=== PATIENT | male | born 1940 | race Caucasian/White ===

== ENCOUNTER → 2019-03-03 | Outpatient (CLI) | payer MEDICARE, OTHER | END | disposition home or self-care (01) | LOC: PLD 08:15 → LAB SHORT 08:15 | DX: D22.72 Melanocytic nevi of left lower limb, including hip (principal) | CPT/HCPCS: 88305; 88312 ==

== ENCOUNTER → 2020-03-22 | Outpatient (CLI) | payer MEDICARE | END | disposition home or self-care (01) | LOC: PLD 11:38 → LAB SHORT 11:38 | DX: D04.39 Carcinoma in situ of skin of other parts of face (principal); L81.4 Other melanin hyperpigmentation | CPT/HCPCS: 88305 ==

== ENCOUNTER 2020-06-13 06:50 | Inpatient (IN) | payer MEDICARE ==
[~2020-06-13] VITALS: Ht 175.3 cm; Wt 91.2 kg
[2020-06-13] MEDS ORDERED: XARELTO20 MG PO (07:07)
[2020-06-13] MEDS ORDERED: ATOR20 PO (07:07)
[2020-06-13] MEDS ORDERED: METF500 PO (07:07)
[2020-06-13] MEDS ORDERED: METO100 PO (07:08)
[2020-06-13] MEDS ORDERED: DIGOX250 MCG PO (07:08)
[2020-06-13] MEDS ORDERED: LISI20 PO (07:10)
[2020-06-13] MEDS ORDERED: ALLO300 PO (07:10)
[2020-06-13] MEDS ORDERED: ALDACTONE25 MG PO (07:11)
[2020-06-13 07:26] LABS: BASOPHILS ABSOLUTE AUTO 0.04 K/mm3 (0.00-0.23); BASOPHILS PERCENT AUTO 0 % (0-2); EOSINOPHILS ABSOLUTE AUTO 0.06 K/mm3 (0.00-0.68); EOSINOPHILS PERCENT AUTO 0 % (0-6); Hematocrit 37.5 % (37.0-53.0); Hemoglobin 12.7 g/dL (13.5-17.5); IMMATURE GRAN PERCENT AUTO 1 % (0-1); LYMPHOCYTES ABSOLUTE AUTO 0.47 K/mm3 (0.84-5.20); LYMPHOCYTES PERCENT AUTO 3 % (21-46); MONOCYTES ABSOLUTE AUTO 0.47 K/mm3 (0.16-1.47); MONOCYTES PERCENT AUTO 3 % (4-13); Mean Corpuscular HGB 30.5 pg (26.0-34.0); Mean Corpuscular HGB Conc 33.9 g/dL (31.5-36.5); Mean Corpuscular Volume 90 fL (80-100); Mean Platelet Volume 10.3 fL (9.1-12.4); NEUTROPHILS ABSOLUTE AUTO 14.03 K/mm3 (1.96-9.15); NEUTROPHILS PERCENT AUTO 92 % (41-73); Platelet Count 184 K/mm3 (150-400); RDW Standard Deviation 45.8 fL (35.1-46.3); Red Blood Cell Count 4.17 M/mm3 (4.30-5.90); White Blood Cell Count 15.17 K/mm3 (4.00-11.30)
[2020-06-13 07:50] LABS: Albumin, Blood 3.5 g/dL (3.4-5.0); Albumin/Globulin Ratio 1.1 (0.8-1.8); Bilirubin, Total 0.8 mg/dL (0.1-1.0); Bun/Creatinine Ratio 20.3 (12.0-20.0); Calcium, Blood 10.7 mg/dL (8.5-10.1); Creatinine, Blood 1.38 mg/dL (0.60-1.20); Globulin, Blood 3.1 g/dL (2.2-4.0); Potassium, Blood 4.3 mmol/L (3.5-5.5); Total Protein, Blood 6.6 g/dL (6.4-8.2)
[2020-06-13 07:53] LABS: Source, Urine Clean Catch
[2020-06-13 08:03] LABS: Bilirubin, Urine Neg (Neg); Blood, Urine 5+ (Neg); Glucose Qualitative, Urine Neg (Neg); Ketones, Urine 1+ (Neg); Leukocyte Esterase, Urine 2+ (Neg); Nitrite, Urine Neg (Neg); Protein, Urine 3+ (Neg); Urobilinogen, Urine NORM (Normal)
[2020-06-13 08:13] LABS: Appearance, Urine Bloody (Clear); Color, Urine Red (P-Yellow)
[2020-06-13 08:17] LABS: Bacteria Few /hpf; Red Blood Cells, Urine TNTC /hpf (0-2); Squamous Epithelial Cells Few /hpf (Few)
[2020-06-13 09:05] LABS: Digoxin (Lanoxin) 0.78 ug/mL (0.80-2.00)
--- NOTE | 2020-06-13 17:02 | NUR ---
PT AOX4 AND COOPERATIVE OF CARE. PT DENIES ANY PAIN AT THIS TIME. PT'S URINE IS BEING STRAINED, BUT NO STONES HAVE BEEN SEEN. PT IS A STANBY ASSIST TO RESTROOM DUE TO NEEDING HELP WITH IV POLE. PT PLEASANT AND COOPERATIVE. CALL LIGHT IS WITHIN REACH. WILL CONTINUE TO MONITOR.
[2020-06-13 17:10] LABS: Hematocrit 34.2 % (37.0-53.0); Hemoglobin 11.3 g/dL (13.5-17.5)
--- NOTE | 2020-06-13 17:48 | NUR ---
PT HAS ONLY PASSED A COUPLE BLOOD CLOTS NO STONES FOUND AT THIS TIME. WILL CONTINUE TO MONITOR.
--- NOTE | 2020-06-14 04:53 | NUR ---
SHIFT SUMMARY A/O, ABLE TO MAKE NEEDS KNOWN. COOPERATIVE WITH CARE. CALLS AND ANSWERS QUESTIONS APPROPRIATELY. NO C/O PAIN/DISCOMFORT. 1P ASSIST TO BATHROOM; STRAINING ALL URINE. TELE RUNNING SR IN 80s PER PCU INSPECTOR AND HAND PACKAGER. CONTINUOUS FLUIDS RUNNING WITHOUT COMPLICATION. POSITIVE BLOOD CX; NEW ORDERS PER ON-CALL PROVIDER FOR VANCO, RECIEVED FIRST DOSE THIS SHIFT. HAS REMAINED FEBRILE T/O NIGHT. BED REMAINS IN LOWEST POSITION; ALARM ON. CALL LIGHT AND BELONGINGS WITHIN REACH. REPORT TO ONCOMING RN.
[2020-06-14 05:14] LABS: BASOPHILS ABSOLUTE AUTO 0.02 K/mm3 (0.00-0.23); BASOPHILS PERCENT AUTO 0 % (0-2); EOSINOPHILS PERCENT AUTO 0 % (0-6); Hematocrit 30.8 % (37.0-53.0); Hemoglobin 10.2 g/dL (13.5-17.5); IMMATURE GRAN ABSOLUTE AUTO 0.03 K/mm3 (0.00-0.10); IMMATURE GRAN PERCENT AUTO 0 % (0-1); LYMPHOCYTES ABSOLUTE AUTO 0.57 K/mm3 (0.84-5.20); LYMPHOCYTES PERCENT AUTO 7 % (21-46); MONOCYTES ABSOLUTE AUTO 0.41 K/mm3 (0.16-1.47); MONOCYTES PERCENT AUTO 5 % (4-13); Mean Corpuscular HGB 29.9 pg (26.0-34.0); Mean Corpuscular HGB Conc 33.1 g/dL (31.5-36.5); Mean Corpuscular Volume 90 fL (80-100); Mean Platelet Volume 10.7 fL (9.1-12.4); NEUTROPHILS ABSOLUTE AUTO 7.35 K/mm3 (1.96-9.15); NEUTROPHILS PERCENT AUTO 88 % (41-73); Platelet Count 130 K/mm3 (150-400); RDW Coefficient Variation 14.6 % (11.7-14.2); RDW Standard Deviation 46.9 fL (35.1-46.3); Red Blood Cell Count 3.41 M/mm3 (4.30-5.90); White Blood Cell Count 8.38 K/mm3 (4.00-11.30)
[2020-06-14 05:35] LABS: Albumin, Blood 2.6 g/dL (3.4-5.0); Bilirubin, Total 0.5 mg/dL (0.1-1.0); Bun/Creatinine Ratio 19.5 (12.0-20.0); Calcium, Blood 9.1 mg/dL (8.5-10.1); Creatinine, Blood 1.28 mg/dL (0.60-1.20); Globulin, Blood 2.6 g/dL (2.2-4.0); Potassium, Blood 4.1 mmol/L (3.5-5.5); Total Protein, Blood 5.2 g/dL (6.4-8.2)
--- NOTE | 2020-06-14 17:34 | NUR ---
PT AOX4 AND COOPERATIVE OF CARE. NO STONES HAVE BEEN VOIDED AT THIS TIME. PT HAS BEEN AFEBRILE ALL DAY AND THEN LAST VITALS PT WAS 99.0. PT IS ABLE TO BE A STANBY ASSIT TO RESTROOM AND PT CALLS APPROPRIATELY. PT HAS CALL LIGHT WITHIN REACH WILL CONTINUE TO MONITOR.
--- NOTE | 2020-06-14 18:25 | NUR ---
ADMIT: 06/13/20 DISCHARGE: 06/15/20 DX: sepsis CC: [email or web address] HOOD CALL: met with Barb and Marko in patient room, call either one for hood RESIDENCE: home CAREGIVER: self Amadeo Barb [phone] DX:afib, dm 2, htn, familia- see list DME: cpap- pcp recommended he get a new one. CCM: no record HOME HEALTH: 1.19 not homebound per patient 06/13/19 No PT OT ordered. SUMMARY: Admit 06/13/20 06/14/20 Met with Barb and Marko in patient room for discharge planning. Marko is still employed, drives, no assitive needs. Discussed hood Call from [facility] on . Follow up appointment scheduled with Dr Phan Saturday 8:40 am Did not identify any care needs at this time Dr Ojeda ETA discharge Thursday 06/15. Left transition of care letter for [facility] with patient. no discharge follow up required at this time. cp 1: Sepsis
--- NOTE | 2020-06-14 19:05 | NUR ---
ASSUMED CARE RECEIVED REPORT FROM TRUNG ZIMMERMAN. PT ASLEEP, NO ACUTE NEEDS OR DISTRESS NOTED AT THIS TIME. RESPS E/U. CALL LIGHT, POSSESSIONS IN REACH, BED IN LOW POSITION WITH ALARM ACTIVATED. CONTINUE TO MONITOR.
--- NOTE | 2020-06-15 04:19 | NUR ---
SHIFT SUMMARY PT ASLEEP, NO S/S DISTRESS. NO ACUTE CHANGES IN CONDITION T/O NIGHT, VS REVIEWED, WNL. DENIES PAIN OR NEEDS AT THIS TIME. CALL LIGHT, POSSESSIONS IN REACH, BED IN LOW POSITION WITH ALARMS ON. WILL CONTINUE TO MONITOR UNTIL REPORT GIVEN TO DAY RN.
--- NOTE | 2020-06-15 07:45 | NUR ---
PT PLEASANT COOP A/O DENIES PAIN. 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 H/R REG, NO MURMER NOTED. NO TELE. LUNGS CLEAR, RESP EASY, UNLABORED. ON R/A. BT X4, STATES LAST BM 2 DAYS. VOIDS INDEPENDANTLY TO BATHROOM. BED IN LOW POSITIOIN, CALL LITE IN REACH, CALLS APPROP
[2020-06-15] MEDS ORDERED: TAMS.4ER PO (15:55)
[2020-06-15] MEDS ORDERED: AMOCLA875 PO (15:55)
--- NOTE | 2020-06-15 16:38 | NUR ---
SUMMARY: Admit 06/13/20 06/16/[address] home with to drive, p/u new meds. appt scheduled 06/17/20 8:40 Dr Phan. No home health needed.
--- NOTE | 2020-06-15 16:43 | NUR ---
DISCHARGE REVIEWED WITH PT AND SPOUSE. VERBALIZED UNDERSTANDING MEDS AND INST. NO TELE. IV PULLED INTACT. PT VERBALIZED NOT HAD BM IN 2-[address] MENESES[address] IS OKAY. OKAYED TO HAVE PT OBTAIN OTC TREATMENT IE MIRALAX OR PRUNE JUICE. EXPLAINED TO PT AND SPOUSE. THEY VERBALIZED UNDERSTANDING. PT WHEELED TO DOOR AT 1646 BY HENRY
== END 2020-06-15 16:42 | disposition home or self-care (01) | DRG 872 ==
LOC: ER 06:50 → MEDS 10:55
PROVIDERS: Emergency Medicine; ADMIT Family Medicine
DX: A41.81 Sepsis due to Enterococcus (principal); N39.0 Urinary tract infection, site not specified; E87.2 Acidosis; I48.20 Chronic atrial fibrillation, unspecified; E78.5 Hyperlipidemia, unspecified; E79.0 Hyperuricemia without signs of inflammatory arthritis and tophaceous disease; G47.30 Sleep apnea, unspecified; I12.9 Hypertensive chronic kidney disease with stage 1 through stage 4 chronic kidney disease, or unspecified chronic kidney disease; E11.22 Type 2 diabetes mellitus with diabetic chronic kidney disease; N18.30 Chronic kidney disease, stage 3 unspecified; N20.0 Calculus of kidney; Z87.891 Personal history of nicotine dependence; Z79.01 Long term (current) use of anticoagulants; N21.0 Calculus in bladder; Z20.822 Contact with and (suspected) exposure to COVID-19
CPT/HCPCS: 36415; 74176; 80053; 80162; 81001; 82947; 83605; 85014; 85018; 85025; 87040; 87077; 87086; 87186; 93005; 93010; 96374; 99285-25; A9270; J0295; J0696; J3370; J7030; J7050

== ENCOUNTER 2022-04-13 08:20 | Emergency (ER) | payer MEDICARE ==
[~2022-04-13] VITALS: Ht 175.3 cm; Wt 86.2 kg
[~2022-04-13 08:20] MED LIST: ALDACTONE25 MG PO; ALLO300 PO; AMOCLA875 PO; ATOR20 PO; DIGOX250 MCG PO; LISI20 PO; METF500 PO; METO100 PO; TAMS.4ER PO; XARELTO20 MG PO
[2022-04-13 10:08] LABS: BASOPHILS ABSOLUTE AUTO 0.05 K/mm3 (0.00-0.23); BASOPHILS PERCENT AUTO 1 % (0-2); EOSINOPHILS ABSOLUTE AUTO 0.16 K/mm3 (0.00-0.68); EOSINOPHILS PERCENT AUTO 2 % (0-6); Hematocrit 33.2 % (37.0-53.0); IMMATURE GRAN ABSOLUTE AUTO 0.04 K/mm3 (0.00-0.10); IMMATURE GRAN PERCENT AUTO 1 % (0-1); LYMPHOCYTES ABSOLUTE AUTO 1.06 K/mm3 (0.84-5.20); LYMPHOCYTES PERCENT AUTO 13 % (21-46); MONOCYTES ABSOLUTE AUTO 0.69 K/mm3 (0.16-1.47); MONOCYTES PERCENT AUTO 9 % (4-13); Mean Corpuscular HGB 29.9 pg (26.0-34.0); Mean Corpuscular HGB Conc 33.1 g/dL (31.5-36.5); Mean Corpuscular Volume 90 fL (80-100); Mean Platelet Volume 9.8 fL (9.1-12.4); NEUTROPHILS ABSOLUTE AUTO 6.13 K/mm3 (1.96-9.15); NEUTROPHILS PERCENT AUTO 75 % (41-73); Platelet Count 226 K/mm3 (150-400); RDW Coefficient Variation 14.8 % (11.7-14.2); RDW Standard Deviation 49.2 fL (35.1-46.3); Red Blood Cell Count 3.68 M/mm3 (4.30-5.90); White Blood Cell Count 8.13 K/mm3 (4.00-11.30)
[2022-04-13 10:34] LABS: Albumin, Blood 3.2 g/dL (3.4-5.0); Albumin/Globulin Ratio 1.1 (0.8-1.8); Bilirubin, Total 0.7 mg/dL (0.1-1.0); Bun/Creatinine Ratio 11.8 (12.0-20.0); Creatinine, Blood 1.19 mg/dL (0.60-1.20); Globulin, Blood 2.9 g/dL (2.2-4.0); Potassium, Blood 4.2 mmol/L (3.5-5.5); Total Protein, Blood 6.1 g/dL (6.4-8.2)
== END 2022-04-13 11:56 | disposition home or self-care (01) ==
LOC: ER 08:20
PROVIDERS: Student in an Organized Health Care Education/Training Program
DX: R10.13 Epigastric pain (principal); R14.2 Eructation; R04.2 Hemoptysis; I10 Essential (primary) hypertension; E11.9 Type 2 diabetes mellitus without complications; E78.5 Hyperlipidemia, unspecified; Z87.891 Personal history of nicotine dependence; Z79.84 Long term (current) use of oral hypoglycemic drugs; Z79.899 Other long term (current) drug therapy
CPT/HCPCS: 80053; 85025; A9270

== ENCOUNTER 2022-05-09 09:30 | Observation (INO) | payer MEDICARE ==
[~2022-05-09] VITALS: Ht 172.7 cm; Wt 70.3 kg
[2022-05-09 10:16] LABS: BASOPHILS ABSOLUTE AUTO 0.04 K/mm3 (0.00-0.23); BASOPHILS PERCENT AUTO 0 % (0-2); EOSINOPHILS ABSOLUTE AUTO 0.02 K/mm3 (0.00-0.68); EOSINOPHILS PERCENT AUTO 0 % (0-6); Hematocrit 34.5 % (37.0-53.0); Hemoglobin 11.4 g/dL (13.5-17.5); IMMATURE GRAN ABSOLUTE AUTO 0.06 K/mm3 (0.00-0.10); IMMATURE GRAN PERCENT AUTO 0 % (0-1); LYMPHOCYTES PERCENT AUTO 3 % (21-46); MONOCYTES ABSOLUTE AUTO 0.49 K/mm3 (0.16-1.47); MONOCYTES PERCENT AUTO 4 % (4-13); Mean Corpuscular HGB 28.1 pg (26.0-34.0); Mean Corpuscular Volume 85 fL (80-100); Mean Platelet Volume 10.1 fL (9.1-12.4); NEUTROPHILS ABSOLUTE AUTO 12.36 K/mm3 (1.96-9.15); NEUTROPHILS PERCENT AUTO 93 % (41-73); Platelet Count 490 K/mm3 (150-400); RDW Coefficient Variation 14.8 % (11.7-14.2); RDW Standard Deviation 46.6 fL (35.1-46.3); Red Blood Cell Count 4.05 M/mm3 (4.30-5.90); White Blood Cell Count 13.37 K/mm3 (4.00-11.30)
[2022-05-09] MEDS ORDERED: FURO40 PO (10:16)
[2022-05-09] MEDS ORDERED: LANS30EC PO (10:16)
[2022-05-09] MEDS ORDERED: LOSA25 PO (10:16)
[2022-05-09] MEDS ORDERED: POTA10T PO (10:17)
[2022-05-09] MEDS ORDERED: SPIR25 PO (10:17)
[2022-05-09] MEDS ORDERED: MAGNESIUM OXID500 MG PO (10:17)
[2022-05-09] MEDS ORDERED: METO100 PO (10:18)
[2022-05-09] MEDS ORDERED: ALLO100 PO (10:19)
[2022-05-09] MEDS ORDERED: ATOR10 PO (10:20)
[2022-05-09] MEDS ORDERED: DIGOX125 MC1 PO (10:20)
[2022-05-09] MEDS ORDERED: METF500 PO (10:20)
[2022-05-09] MEDS ORDERED: XARELTO20 MG PO (10:21)
[2022-05-09 10:33] LABS: Albumin, Blood 3.5 g/dL (3.4-5.0); Albumin/Globulin Ratio 0.9 (0.8-1.8); Bilirubin, Total 1.2 mg/dL (0.1-1.0); Calcium, Blood 11.3 mg/dL (8.5-10.1); Creatinine, Blood 1.08 mg/dL (0.60-1.20); Globulin, Blood 3.7 g/dL (2.2-4.0); Potassium, Blood 3.6 mmol/L (3.5-5.5); Total Protein, Blood 7.2 g/dL (6.4-8.2)
--- NOTE | 2022-05-09 16:48 | NUR ---
05/09/22 [address] Darleen Teran MAC WITH DR. DOZIER IN OR# 2; PT IS INTUBATED WITH ET TUBE. SEE ANESTHESIA RECORDS.
--- NOTE | 2022-05-09 18:10 | NUR ---
Met with spouse in the Surg waiting area. Established rapport and facilitated a life review. Spouse was in surgery. Established rapport, and will visit Pt. in the morning. Spouse verbalized gratitude for the spiritual care visit.
--- NOTE | 2022-05-09 18:36 | NUR ---
SHIFT SUMMARY/ADMIT NOTE- PT ADMITTED THROUGH DAY SURGERY AFTER UPPER ENDOSCOPY. PER REPORT PT ONLY HAS A SMALL PIN HOLE TO SWALLOW THROUGH, PER GI HE SHOULD NEVERY HAVE MORE THAN CLEAR LIQUIDS. CURRENT STRICT NPO. PT ALERT AND ORIENTED. PER PT HE IS USUALLY INDEPENDENT AT HOME WITH NO ASSISTIVE DEVICES. ADMISSION ASSESSMENT COMPLETED BUT NO OTHER ADMISSION DOCUMENTS WILL PASS ON TO NIGHT RN IN BEDSIDE REPORT.
--- NOTE | 2022-05-10 04:41 | NUR ---
SHIFT SUMMARY; NO ACUTE CHANGES THORUGHOUT THE NIGHT. PT REMAINS NPO POST UPPER ENDOSCOPY. PT REMAINED IN BED THORUGHOUT THE NIGHT. PT IS AXO X3-4 WITH SOME MILD CONFUSION UPON WAKING UP. PT IS A 1 ASSIST TO USE THE BEDSIDE URINAL CURRENTLY. THE PT IS PLEASANT AND USES THE CALL LIGHT APPROPRIATLEY. THE PT DOES HAVE A WET SOUNDING COUGH LIKLEY IN RELATION TO HIS L SIDED ASPIRATION PNEUMONIA. PT DENIES ANY SOB OR PAIN AT THIS TIME. CURRENTLY THE PT IS RESTING IN BED WITH BED IN THE LOWEST POSITION AND THE CALL LIGHT AT THE BEDSIDE.
[2022-05-10 04:47] LABS: BASOPHILS ABSOLUTE AUTO 0.01 K/mm3 (0.00-0.23); BASOPHILS PERCENT AUTO 0 % (0-2); EOSINOPHILS PERCENT AUTO 0 % (0-6); Hematocrit 29.6 % (37.0-53.0); Hemoglobin 9.6 g/dL (13.5-17.5); IMMATURE GRAN ABSOLUTE AUTO 0.08 K/mm3 (0.00-0.10); IMMATURE GRAN PERCENT AUTO 1 % (0-1); LYMPHOCYTES ABSOLUTE AUTO 0.46 K/mm3 (0.84-5.20); LYMPHOCYTES PERCENT AUTO 3 % (21-46); MONOCYTES ABSOLUTE AUTO 0.38 K/mm3 (0.16-1.47); MONOCYTES PERCENT AUTO 3 % (4-13); Mean Corpuscular HGB 27.7 pg (26.0-34.0); Mean Corpuscular HGB Conc 32.4 g/dL (31.5-36.5); Mean Corpuscular Volume 86 fL (80-100); Mean Platelet Volume 10.5 fL (9.1-12.4); NEUTROPHILS PERCENT AUTO 94 % (41-73); Platelet Count 422 K/mm3 (150-400); RDW Coefficient Variation 15.1 % (11.7-14.2); RDW Standard Deviation 46.7 fL (35.1-46.3); Red Blood Cell Count 3.46 M/mm3 (4.30-5.90); White Blood Cell Count 14.93 K/mm3 (4.00-11.30)
[2022-05-10 05:15] LABS: Albumin, Blood 2.8 g/dL (3.4-5.0); Albumin/Globulin Ratio 0.8 (0.8-1.8); Bilirubin, Total 1.1 mg/dL (0.1-1.0); Bun/Creatinine Ratio 31.2 (12.0-20.0); Calcium, Blood 10.4 mg/dL (8.5-10.1); Creatinine, Blood 1.25 mg/dL (0.60-1.20); Globulin, Blood 3.4 g/dL (2.2-4.0); Total Protein, Blood 6.2 g/dL (6.4-8.2)
--- NOTE | 2022-05-10 11:37 | NUR ---
Pt. is awake and sitting on the side of the bed and welcomes my visit. Spouse is present. 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 Rapport is quickly re-established. Pt. displays awareness and engagement in the process of his recovery. Pts. nurse steps in to check on him for a short time. Consider issues of mando and belief. Prayed with Pt. Pt. verbalized gratitude for the spiritual care visit.
--- NOTE | 2022-05-10 15:17 | NUR ---
PT WAS SEEN BY DR MARTINEZ WHO IS IN AGREEMENT THAT THE PT CAN NOT TAKE PO MEDS. PT ON A CLEAR LIQUID DIET, BEING GIVEN SMALL AMOUNTS OF ICE CHIPS AT A TIME. PER GI DOCTOR PO FLIUDS SHOULD BE DONE SLOWLY WITH PLENTY OF TIME FOR THE FLUID TO PASS THROUGH THE PINHOLE OPENING HE HAS. GEN SURGERY CONSULT CALLED THIS AFTERNOON FOR POSSIBLE G TUBE PLACEMENT.
[2022-05-10] MEDS ORDERED: PANTOPRAZOLE SO40 M2 PO (15:25)
--- NOTE | 2022-05-10 15:57 | NUR ---
CALLED DR SELLERS- AFTER DR PULIDO LEFT THE PT ROOM , CALLED DR SELLERS ABOUT THE POSSIBLE NEED FOR IV NUTRITION IN THE PRESENCE OF THE PT INABILITY TO SWALLOW. DR SELLERS IS COMING IN TO TALK WITH THE FAMILY AND PT NOW. THE PLAN IS TO DISCHARGE THE PT AND HAVE HIM FOLLOW UP AT [facility] FOR POSSIBLE THORACIC SURGERY.
[2022-05-10] MEDS ORDERED: AZIT200SU PO (17:05)
[2022-05-10] MEDS ORDERED: CEFPODOXIM100 MG/5 M PO (17:07)
--- NOTE | 2022-05-10 18:25 | NUR ---
SHIFT SUMMARY- PT ALERT AND ORIENTED. PT AND SPOUSE WERE GIVEN VERBAL AND WRITTEN DISCHARGE INSTRUCTIONS INCLUDING THE SPECIFIC INSTRUCTIONS FROM DR SELLERS TO NOT TAKE ANY PO PILL MEDICATIONS. THE PT IS AWARE HE SHOULD STILL TAKE THE TWO LIQUID ANTIBIOTICS THAT WERE ORDERED TODAY AT DISCHARGE. PT AND SPOUSE ACKNOWLEDGED UNDERSTANDING OF THESE INSTRUCTIONS AND WERE ESCORTED OUT VIA WC. NO S&S OF DISTRESS AT THE TIME OF DISCHARGE. IV DC'D PRIOR TO DISCHARGE.
== END 2022-05-10 18:22 | disposition home health service (06) ==
LOC: ER 09:30 → MEDS 09:31 → ER 13:58 → ERHOLD 13:58 → MEDS 13:58 → ERHOLD 18:04 → MEDS 18:04 → ER 05-10 16:01 → MEDS 05-10 16:02
PROVIDERS: Student in an Organized Health Care Education/Training Program; ADMIT Internal Medicine
PROC: 0DC58ZZ Extirpation of Matter from Esophagus, Via Natural or Artificial Opening Endoscopic (ICD-10-PCS; principal; 2022-05-10)
DX: T18.128A Food in esophagus causing other injury, initial encounter (principal); J69.0 Pneumonitis due to inhalation of food and vomit; I48.91 Unspecified atrial fibrillation; J90 Pleural effusion, not elsewhere classified; I10 Essential (primary) hypertension; I50.42 Chronic combined systolic (congestive) and diastolic (congestive) heart failure; E11.9 Type 2 diabetes mellitus without complications; E78.5 Hyperlipidemia, unspecified; G47.33 Obstructive sleep apnea (adult) (pediatric); M10.9 Gout, unspecified
CPT/HCPCS: 36415; 71260; 80053; 82947; 83735; 84145; 85025; 90686; 93005; 93010; 96365-59; 99285-25; C9113; G0378; J0330; J0696; J1100; J2405; J2704; J3010; J7120; Q9967

== ENCOUNTER → 2022-06-29 | Outpatient (CLI) | payer MEDICARE ==
[~2022-06-29] MED LIST changes: +ALLO100 PO; +ATOR10 PO; +AZIT200SU PO; +CEFPODOXIM100 MG/5 M PO; +DIGOX125 MC1 PO; +FURO40 PO; +LANS30EC PO; +LOSA25 PO; +MAGNESIUM OXID500 MG PO; +PANTOPRAZOLE SO40 M2 PO; +POTA10T PO; +SPIR25 PO
[2022-06-29 17:02] LABS: BASOPHILS ABSOLUTE AUTO 0.03 K/mm3 (0.00-0.23); BASOPHILS PERCENT AUTO 1 % (0-2); EOSINOPHILS ABSOLUTE AUTO 0.15 K/mm3 (0.00-0.68); EOSINOPHILS PERCENT AUTO 3 % (0-6); Hematocrit 26.9 % (37.0-53.0); Hemoglobin 9.4 g/dL (13.5-17.5); IMMATURE GRAN ABSOLUTE AUTO 0.01 K/mm3 (0.00-0.10); IMMATURE GRAN PERCENT AUTO 0 % (0-1); LYMPHOCYTES PERCENT AUTO 9 % (21-46); MONOCYTES ABSOLUTE AUTO 0.44 K/mm3 (0.16-1.47); MONOCYTES PERCENT AUTO 9 % (4-13); Mean Corpuscular HGB 31.2 pg (26.0-34.0); Mean Corpuscular HGB Conc 34.9 g/dL (31.5-36.5); Mean Corpuscular Volume 89 fL (80-100); Mean Platelet Volume 9.6 fL (9.1-12.4); NEUTROPHILS ABSOLUTE AUTO 3.67 K/mm3 (1.96-9.15); NEUTROPHILS PERCENT AUTO 78 % (41-73); Platelet Count 259 K/mm3 (150-400); RDW Coefficient Variation 18.5 % (11.7-14.2); RDW Standard Deviation 53.8 fL (35.1-46.3); Red Blood Cell Count 3.01 M/mm3 (4.30-5.90)
[2022-06-29 19:34] LABS: Albumin, Blood 2.5 g/dL (3.4-5.0); Albumin/Globulin Ratio 0.6 (0.8-1.8); Bilirubin, Total 0.5 mg/dL (0.1-1.0); Bun/Creatinine Ratio 30.1 (12.0-20.0); Calcium, Blood 9.9 mg/dL (8.5-10.1); Creatinine, Blood 0.96 mg/dL (0.60-1.20); Globulin, Blood 4.2 g/dL (2.2-4.0); Potassium, Blood 3.8 mmol/L (3.5-5.5); Total Protein, Blood 6.7 g/dL (6.4-8.2)
== END | disposition home or self-care (01) ==
LOC: LAB 15:52 → LAB SHORT 15:52
PROVIDERS: Family Medicine
DX: C15.9 Malignant neoplasm of esophagus, unspecified (principal); E11.9 Type 2 diabetes mellitus without complications
CPT/HCPCS: 36415; 80053; 83036; 85025

== ENCOUNTER → 2022-07-02 | Outpatient (CLI) | payer MEDICARE ==
[2022-07-02 21:22] LABS: Microalb/Creat Ratio UR, Rand 125.532 mg/g (0.000-30.000)
== END | disposition home or self-care (01) ==
LOC: LAB 15:41 → LAB SHORT 15:41
PROVIDERS: Family Medicine
DX: E11.21 Type 2 diabetes mellitus with diabetic nephropathy (principal)
CPT/HCPCS: 82043; 82570

== ENCOUNTER → 2022-07-26 | Outpatient (CLI) | payer MEDICARE | END | disposition home or self-care (01) | LOC: LAB SHORT 13:59 → LAB 13:59 | DX: J18.1 Lobar pneumonia, unspecified organism (principal) | CPT/HCPCS: 87070; 87205 ==

== ENCOUNTER → 2022-08-06 | Outpatient (CLI) | payer MEDICARE | END | disposition home or self-care (01) | LOC: LAB SHORT 14:50 → LAB 14:50 | DX: J18.1 Lobar pneumonia, unspecified organism (principal) | CPT/HCPCS: 87070; 87077; 87186; 87205 ==

== ENCOUNTER → 2022-08-13 | Outpatient (CLI) | payer MEDICARE ==
[2022-08-14 06:37] LABS: Bun/Creatinine Ratio 38.3 (12.0-20.0); Calcium, Blood 10.5 mg/dL (8.5-10.1); Creatinine, Blood 1.07 mg/dL (0.60-1.20); Magnesium, Blood 1.9 mg/dL (1.6-2.4); Potassium, Blood 3.9 mmol/L (3.5-5.5)
== END | disposition home or self-care (01) ==
LOC: LAB SHORT 15:30 → LAB 15:30
PROVIDERS: Family Medicine
DX: E83.42 Hypomagnesemia (principal); R60.0 Localized edema
CPT/HCPCS: 80048; 83735

== ENCOUNTER → 2022-08-30 | Outpatient (CLI) | payer MEDICARE ==
[2022-08-30 17:33] LABS: International Normalized Ratio 1.05
== END ==
LOC: LAB SHORT 16:53
PROVIDERS: Family Medicine
DX: J90 Pleural effusion, not elsewhere classified (principal); J94.8 Other specified pleural conditions; R79.1 Abnormal coagulation profile
CPT/HCPCS: 85610; 85730

== ENCOUNTER 2022-09-07 06:47 | Inpatient (IN) | payer MEDICARE ==
[~2022-09-07] VITALS: Ht 175.3 cm; Wt 97.3 kg
[2022-09-07 07:34] LABS: BASOPHILS ABSOLUTE AUTO 0.01 K/mm3 (0.00-0.23); BASOPHILS PERCENT AUTO 0 % (0-2); EOSINOPHILS ABSOLUTE AUTO 0.02 K/mm3 (0.00-0.68); EOSINOPHILS PERCENT AUTO 0 % (0-6); Hematocrit 32.4 % (37.0-53.0); Hemoglobin 10.2 g/dL (13.5-17.5); IMMATURE GRAN ABSOLUTE AUTO 0.03 K/mm3 (0.00-0.10); IMMATURE GRAN PERCENT AUTO 0 % (0-1); LYMPHOCYTES ABSOLUTE AUTO 0.32 K/mm3 (0.84-5.20); LYMPHOCYTES PERCENT AUTO 4 % (21-46); MONOCYTES PERCENT AUTO 4 % (4-13); Mean Corpuscular HGB 27.2 pg (26.0-34.0); Mean Corpuscular HGB Conc 31.5 g/dL (31.5-36.5); Mean Corpuscular Volume 86 fL (80-100); Mean Platelet Volume 9.4 fL (9.1-12.4); NEUTROPHILS ABSOLUTE AUTO 7.12 K/mm3 (1.96-9.15); NEUTROPHILS PERCENT AUTO 91 % (41-73); Platelet Count 313 K/mm3 (150-400); RDW Coefficient Variation 22.7 % (11.7-14.2); RDW Standard Deviation 70.4 fL (35.1-46.3); Red Blood Cell Count 3.75 M/mm3 (4.30-5.90)
[2022-09-07] MEDS ORDERED: ELIQUIS2.5 M1 PO (07:41)
[2022-09-07 07:53] LABS: International Normalized Ratio 1.04; Prothrombin Time Results 10.9 Sec (9.7-11.5)
[2022-09-07 08:07] LABS: Albumin, Blood 1.9 g/dL (3.4-5.0); Albumin/Globulin Ratio 0.3 (0.8-1.8); Bilirubin, Total 0.6 mg/dL (0.1-1.0); Bun/Creatinine Ratio 43.9 (12.0-20.0); Calcium, Blood 11.7 mg/dL (8.5-10.1); Creatinine, Blood 1.32 mg/dL (0.60-1.20); Globulin, Blood 6.4 g/dL (2.2-4.0); Magnesium, Blood 1.9 mg/dL (1.6-2.4); Potassium, Blood 3.7 mmol/L (3.5-5.5); Total Protein, Blood 8.3 g/dL (6.4-8.2)
--- NOTE | 2022-09-07 10:55 | NUR ---
Pt. is still in ED1 when he welcomes my visit. Spouse and daughter are present. Pt. is pleasant and displays evidence of engagement and awareness. Facilitate life review and share common experiences. Pt. is a man of mando, so we prayed together. Pt. and family verbalize gratitude for the spiritual care visit.
[2022-09-07 11:38] VITALS: BP 131/64
--- NOTE | 2022-09-07 18:17 | NUR ---
New admit, admitted for hemoptysis. Patient is AOx4, answers questions appropriately. Patient is NPO, gurgles water and spits out to moisten mouth per family. Patient has a gtube, orders to give meds via gtube, tube feedings ordered. Patients family at bedside administering feeds. Patient has wound on coccyx, patients applied gummy dressing, CDI, applied mepilex over dressing. Patient is SBA, steady gait, ambulates to bathroom. Normal slaine x1 bag, infusing, IV Heparin drip infusing, 2x RN check for new bag/rate change. IV Zoysn & Vanco administred. Patient has 2 IV sites on each arm. Patient continues to cough up bloody phlem. Uses yanker to suction oral secretions. Patient obs status, will continue to monitor over night. Vitals stable.
[2022-09-07 19:49] VITALS: BP 114/54
[2022-09-08 03:11] LABS: BASOPHILS ABSOLUTE AUTO 0.01 K/mm3 (0.00-0.23); BASOPHILS PERCENT AUTO 0 % (0-2); EOSINOPHILS ABSOLUTE AUTO 0.08 K/mm3 (0.00-0.68); EOSINOPHILS PERCENT AUTO 1 % (0-6); Hematocrit 25.1 % (37.0-53.0); Hemoglobin 7.7 g/dL (13.5-17.5); IMMATURE GRAN ABSOLUTE AUTO 0.02 K/mm3 (0.00-0.10); IMMATURE GRAN PERCENT AUTO 0 % (0-1); LYMPHOCYTES ABSOLUTE AUTO 0.59 K/mm3 (0.84-5.20); LYMPHOCYTES PERCENT AUTO 7 % (21-46); MONOCYTES ABSOLUTE AUTO 0.54 K/mm3 (0.16-1.47); MONOCYTES PERCENT AUTO 6 % (4-13); Mean Corpuscular HGB 26.6 pg (26.0-34.0); Mean Corpuscular HGB Conc 30.7 g/dL (31.5-36.5); Mean Corpuscular Volume 87 fL (80-100); NEUTROPHILS ABSOLUTE AUTO 7.57 K/mm3 (1.96-9.15); NEUTROPHILS PERCENT AUTO 86 % (41-73); Platelet Count 259 K/mm3 (150-400); RDW Coefficient Variation 22.6 % (11.7-14.2); RDW Standard Deviation 70.8 fL (35.1-46.3); Red Blood Cell Count 2.89 M/mm3 (4.30-5.90); White Blood Cell Count 8.81 K/mm3 (4.00-11.30)
[2022-09-08 03:29] LABS: Albumin, Blood 1.5 g/dL (3.4-5.0); Albumin/Globulin Ratio 0.3 (0.8-1.8); Bilirubin, Total 0.5 mg/dL (0.1-1.0); Calcium, Blood 10.7 mg/dL (8.5-10.1); Creatinine, Blood 1.35 mg/dL (0.60-1.20); Globulin, Blood 4.9 g/dL (2.2-4.0); Potassium, Blood 3.5 mmol/L (3.5-5.5); Total Protein, Blood 6.4 g/dL (6.4-8.2)
[2022-09-08 04:57] VITALS: BP 117/51
--- NOTE | 2022-09-08 05:40 | NUR ---
PATIENT SLEPT ALL NIGHT DESPITE A VERY FREQUENT COUGH.. UPPER AIRWAYS LOOSE, WHILE PATIENT WAS AWAKE, HE WOULD SUCTION OUT MUCOUS AFTER COUGHING. 1ST DOSE METOPROLOL GIVEN WITHOUT SIGNIFICANT CHANGE. HEPARIN DOSING INCREASED 3X OVERNIGHT AND IS NOW RUNNING AT 23 UNITS/KG/HOUR OR 36.3ML/HR. PATIENT DENIED PAIN OR DISCOMFORT OVERNIGHT WITH THE EXCEPTION OF MENTIONING THE PAIN HE GETS IN HIS GUT (RUBBING LOWER QUADRANTS) WHEN HE COUGHS HARD. SPOUSE RAY WHO IS HIS CAREGIVER IS VERY HELPFUL AND NEVER LEFT HER SIDE.
[2022-09-08 07:56] VITALS: BP 112/58
--- NOTE | 2022-09-08 17:17 | NUR ---
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 He initially attempted radiation at [facility], but became too weak and transferred to Dr. Shah at the [facility]. The pt is not attempting to try any chemo or further treatments, as it has been established by the oncology team that the treatment would likely cause his demise due to his already extremely compromised state. Plan to discuss code status with pt tomorrow, and research methods to calm the cough.
--- NOTE | 2022-09-08 18:21 | NUR ---
DAYSHIFT SUMMARY Patient continues to have bloody-tinged sputum, uses yanker to suction oral secretions. Denies pain or discomfort. Heparin gtt infusing, IV Zoysn & Vancomycin adminstred this shift. Metoprolol administred via Gtube. Vitals stable. IV Lasix given, MD ordered strict I/Os & daily wts. BLE +2 pitting edema, +3 pitting edema noted in bilat feet. Pallilative care spoke to today. Plan is to keep patient for obs, and continue Heparin gtt.
[2022-09-08 20:25] VITALS: BP 104/48
[2022-09-09 02:23] VITALS: BP 107/48
[2022-09-09 05:18] LABS: BASOPHILS ABSOLUTE AUTO 0.02 K/mm3 (0.00-0.23); BASOPHILS PERCENT AUTO 0 % (0-2); EOSINOPHILS ABSOLUTE AUTO 0.17 K/mm3 (0.00-0.68); EOSINOPHILS PERCENT AUTO 2 % (0-6); Hematocrit 25.9 % (37.0-53.0); IMMATURE GRAN ABSOLUTE AUTO 0.05 K/mm3 (0.00-0.10); IMMATURE GRAN PERCENT AUTO 1 % (0-1); LYMPHOCYTES ABSOLUTE AUTO 0.62 K/mm3 (0.84-5.20); LYMPHOCYTES PERCENT AUTO 7 % (21-46); MONOCYTES ABSOLUTE AUTO 0.46 K/mm3 (0.16-1.47); MONOCYTES PERCENT AUTO 6 % (4-13); Mean Corpuscular HGB 26.8 pg (26.0-34.0); Mean Corpuscular HGB Conc 30.9 g/dL (31.5-36.5); Mean Corpuscular Volume 87 fL (80-100); Mean Platelet Volume 10.1 fL (9.1-12.4); NEUTROPHILS ABSOLUTE AUTO 7.01 K/mm3 (1.96-9.15); NEUTROPHILS PERCENT AUTO 84 % (41-73); Platelet Count 268 K/mm3 (150-400); RDW Coefficient Variation 22.6 % (11.7-14.2); RDW Standard Deviation 70.5 fL (35.1-46.3); Red Blood Cell Count 2.98 M/mm3 (4.30-5.90); White Blood Cell Count 8.33 K/mm3 (4.00-11.30)
[2022-09-09 05:39] LABS: Anion Gap Unable to Calculate mmol/L (6-16); Blood Urea Nitrogen 53 mg/dL (8-24); Bun/Creatinine Ratio 41.1 (12.0-20.0); CO2, Blood 39 mmol/L (21-32); Calcium, Blood 10.6 mg/dL (8.5-10.1); Chloride, Blood 104 mmol/L (98-108); Creatinine, Blood 1.29 mg/dL (0.60-1.20); Glomerular Filtration Rate 55 (60-); Glucose, Blood 108 mg/dL (70-99); Sodium, Blood 141 mmol/L (136-145)
--- NOTE | 2022-09-09 06:48 | NUR ---
LINDA SLEPT A LITTLE LESS UNCOMFORTABLY TAKING HIS ROBITUSSIN THROUGH THE PEG TUBE TO SLOW THE COUGH WHILE HE SLEPT.. PTT ELEVATED THIS MORNING. HEPARIN GTT TURNED OFF AT 0625 PER PHARMACIST ORDER AT 24 UNITS/KG/HR
--- NOTE | 2022-09-09 07:35 | NUR ---
EARLY IN THE EVENING, PATIENT HAD AN EPISTAXIS WHICH TOOK AROUND 15 MINUTES TO STOP. HE AGREED TO ALLOW THIS RN TO ADD HUMIDITY TO HIS 02 TO DECREASE THE DRYNESS OF HIS MEMBRANES. ALSO ROBITUSSIN WAS ADDED TO HELP WITH CONSTANT COUGH AND SECRETIONS. RAY REMAINS IN ROOM HELPING WITH FEEDINGS AND PERSONAL CARE. LINDA INSISTS HE IS NOT HAVING ENOUGH DISCOMFORT TO NEED PAIN MEDICINE
[2022-09-09 07:46] VITALS: BP 102/42
[2022-09-09 12:50] LABS: Vancomycin, Trough 17.8 ug/mL (5.0-10.0)
[2022-09-09 17:13] VITALS: BP 122/45
--- NOTE | 2022-09-09 19:35 | NUR ---
SHIFT SUMMARY PT A&OX4 AND IN PLEASENT MOOD T/O SHIFT. MULTIPLE FAMILY/FRIENDS IN TO SEE PT T/O VISITING HOURS, SPOUSE AT BEDSIDE T/O SHIFT. PT NPO, MANAGE G TUBE. VSS. CALL LIGHT W/IN REACH. PRODUCTIVE COUGH, PINK FROTHY SPUTUM-HEP DRIP DCED. LIKELY HOME ON HOSPICE TOMORROW. 1XFWW TO BATHROOM. LASIX ADMIN.
[2022-09-09 21:01] VITALS: BP 118/63
[2022-09-10 02:41] VITALS: BP 116/53
[2022-09-10 07:49] VITALS: BP 114/52
[2022-09-10] MEDS ORDERED: FURO40 PO (11:12)
[2022-09-10] MEDS ORDERED: ALLO100 PO (11:13)
[2022-09-10] MEDS ORDERED: Lopressor 25 mg25 MG PO (11:13)
[2022-09-10] MEDS ORDERED: CODEINE-GUAIFE120 M1 PT (11:15)
[2022-09-10] MEDS ORDERED: POTA20LUD PO (11:16)
--- NOTE | 2022-09-10 12:48 | NUR ---
DISCHARGE PT A&O X4, AT BEDSIDE FOR DC DIRECTION. MEDS FAXED. HOME ON HOSPICE, PLAN FOR [facility] ON SAT, OXYGEN AVAILABLE PROB ON SATURDAY IF NEEDED-PT AND DIDNT WANT HOME OX EVAL. HARD SCRIPT PROVIDED TO PT . MOTOR COACH BUS DRIVER ESCORT OUT VIA WC. MINISTERIO OZUNA NOTED.
== END 2022-09-10 12:46 | disposition hospice, home (50) | DRG 374 ==
LOC: ER 06:47 → MEDS 10:03
PROVIDERS: Student in an Organized Health Care Education/Training Program; ADMIT Internal Medicine
DX: C15.9 Malignant neoplasm of esophagus, unspecified (principal); J96.01 Acute respiratory failure with hypoxia; I50.42 Chronic combined systolic (congestive) and diastolic (congestive) heart failure; N17.9 Acute kidney failure, unspecified; R04.2 Hemoptysis; Q21.12 Patent foramen ovale; Z66 Do not resuscitate; Z51.5 Encounter for palliative care; E11.9 Type 2 diabetes mellitus without complications; E78.5 Hyperlipidemia, unspecified; I48.91 Unspecified atrial fibrillation; M10.9 Gout, unspecified; G47.33 Obstructive sleep apnea (adult) (pediatric); D50.9 Iron deficiency anemia, unspecified; I27.20 Pulmonary hypertension, unspecified; I11.0 Hypertensive heart disease with heart failure; Z86.718 Personal history of other venous thrombosis and embolism; Z98.890 Other specified postprocedural states; Z87.891 Personal history of nicotine dependence; Z79.01 Long term (current) use of anticoagulants; Z79.899 Other long term (current) drug therapy
CPT/HCPCS: 36415; 71260; 74018; 80048; 80053; 80202; 82330; 83605; 83735; 83880; 84145; 84484; 85025; 85610; 85730; 86850; 86900; 86901; 87040; 93005; 93010; 94760; 96365-59; 99285-25; A9270; J0696; J1644; J1940; J2543; J3370; J3480; J7030; J7050; Q9967